=== PATIENT | female | born 1945 | race Two or more races ===

== ENCOUNTER 2019-11-01 17:50 | Inpatient (IN) | payer MEDICARE, BC ==
[~2019-11-01] VITALS: Ht 170.2 cm; Wt 61.2 kg
[2019-11-01] MEDS ORDERED: BISA10SU61 RC (18:14)
[2019-11-01] MEDS ORDERED: PANT40TA2 PO (18:14)
[2019-11-01] MEDS ORDERED: SENN-18 PO (18:14)
[2019-11-01] MEDS ORDERED: POLY17PO4 PO (18:14)
[2019-11-01] MEDS ORDERED: QUET50TA PO (18:14)
[2019-11-01] MEDS ORDERED: ONDA4TAB5 PO (18:14)
[2019-11-01] MEDS ORDERED: LORA-259 PO (18:14)
[2019-11-01] MEDS ORDERED: ACET-2154 PO (18:14)
[2019-11-01] MEDS ORDERED: DOCU-141 PO (18:14)
[2019-11-01] MEDS ORDERED: MAG HYDROX/AL HYDROX/SIMETH 30 ML LIQUID UDC PO PRN (20:00)
[2019-11-01] MEDS ORDERED: BLOOD SUGAR DIAGNOSTIC 1 EACH STRIP VI ONE (20:00)
[2019-11-01] MEDS ORDERED: MAGNESIUM HYDROXIDE 30 ML LIQUID UDC PO PRN (20:00)
[2019-11-01 20:30] VITALS: BP 161/83
[2019-11-01] MEDS: TEMAZEPAM 7.5 MG CAPSULE PO PRN (20:42)
[2019-11-01] MEDS ORDERED: OLANZAPINE 10 MG VIAL IM ONE (21:00)
[2019-11-02 07:30] VITALS: BP 134/77
[2019-11-02 08:15] LABS: BASOPHILS % (AUTO) 0.6 % (0.0-2.0); EOSINOPHILS # (AUTO) 0.1 K/uL (0.0-0.7); EOSINOPHILS % (AUTO) 2.3 % (0.0-7.0); HEMATOCRIT 41.7 % (31.2-41.9); HEMOGLOBIN 13.7 g/dL (10.9-14.3); LYMPHOCYTES # (AUTO) 1.9 K/uL (20.0-40.0); LYMPHOCYTES % (AUTO) 32.5 % (20.5-51.5); MEAN CORPUSCULAR HEMOGLOBIN 31.7 uug (24.7-32.8); MEAN CORPUSCULAR HGB CONC 33 g/dL (32.3-35.6); MEAN CORPUSCULAR VOLUME 96.7 fL (75.5-95.3); MONOCYTES # (AUTO) 0.5 K/uL (2.0-10.0); MONOCYTES % (AUTO) 8.7 % (0.0-11.0); NEUTROPHILS # (AUTO) 3.3 K/uL (1.8-8.9); NEUTROPHILS % (AUTO) 55.9 % (38.5-71.5); PLATELET COUNT (AUTO) 258 K/uL (179-408); RED BLOOD CELL COUNT(AUTO) 4.31 MIL/uL (3.63-4.92); WHITE BLOOD COUNT (AUTO) 5.9 K/uL (3.8-11.8)
[2019-11-02] MEDS: LORAZEPAM 0.5 MG TABLET PO PRN ×2 (08:15→12:49)
[2019-11-02] MEDS ORDERED: OLANZAPINE 10 MG VIAL IM ONE (08:30)
[2019-11-02 08:32] LABS: CREATININE 0.8 mg/dL (0.6-1.3); POTASSIUM 4.1 mmol/L (3.5-5.1)
[2019-11-02 08:54] LABS: BILIRUBIN,TOTAL 0.3 mg/dL (0.1-1.0); PHOSPHOROUS 4.1 mg/dL (2.5-4.9)
[2019-11-02 08:55] LABS: BILIRUBIN,DIRECT 0.1 mg/dL (0.0-0.2); MAGNESIUM 2.1 mg/dL (1.8-2.4); TOTAL PROTEIN, SERUM 7.5 g/dL (6.4-8.2)
[2019-11-02 09:46] LABS: THYROID STIMULATING HORMONE 6.031 mIU/mL (0.358-3.740)
[2019-11-02] MEDS: ACETAMINOPHEN 325 MG TABLET PO PRN (12:50)
[2019-11-02 16:00] VITALS: BP 136/66
[2019-11-02] MEDS: DIVALPROEX SPRINKLE 125 MG CAP.SPRINK PO SCH (16:56)
[2019-11-02] MEDS: CEphaleXIN 500 MG CAPSULE PO SCH ×2 (16:56→20:35)
[2019-11-02] MEDS: OLANZAPINE 5 MG TABLET PO SCH ×2 (16:57→20:35)
[2019-11-02 20:00] VITALS: BP 118/60
[2019-11-02] MEDS: ATORVASTATIN 20 MG TABLET PO SCH (20:35)
[2019-11-03] MEDS: LORAZEPAM 0.5 MG TABLET PO PRN ×4 (02:39→17:59)
[2019-11-03] MEDS: ACETAMINOPHEN 325 MG TABLET PO PRN ×3 (03:35→20:37)
[2019-11-03 07:30] VITALS: BP 168/85
[2019-11-03] MEDS: CEphaleXIN 500 MG CAPSULE PO SCH (08:13)
[2019-11-03] MEDS: DIVALPROEX SPRINKLE 125 MG CAP.SPRINK PO SCH ×3 (08:13→16:37)
[2019-11-03] MEDS: OLANZAPINE 5 MG TABLET PO SCH ×4 (08:13→20:04)
[2019-11-03 11:57] LABS: *BILIRUBIN,URIN NEGATIVE (NEGATIVE); *BLOOD, URINE NEGATIVE (NEGATIVE); *CLARITY,URINE CLEAR (CLEAR); *COLOR,URINE LIGHT YELLOW (YELLOW); *KETONES,URINE NEGATIVE (NEGATIVE); *UROBILINOGEN,URINE 0.2 E.U./dl (NORMAL); LEUKOCYTE ESTERASE ,URINE NEGATIVE (NEGATIVE); NITRITE, URINE NEGATIVE (NEGATIVE); UGLUCOSE NEGATIVE (NEGATIVE)
[2019-11-03] MEDS ORDERED: OLANZAPINE 5 MG TABLET PO SCH (13:00)
[2019-11-03 15:12] VITALS: BP 154/78
[2019-11-03] MEDS: ATORVASTATIN 20 MG TABLET PO SCH (20:04)
[2019-11-03 20:36] VITALS: BP 143/82
[2019-11-04] MEDS: LEVOTHYROXINE SODIUM 25 MCG TABLET PO SCH (06:06)
[2019-11-04 07:30] VITALS: BP_SYST 128; BP_SYST 145; BP_DIAS 77; BP_DIAS 91
[2019-11-04] MEDS: LORAZEPAM 0.5 MG TABLET PO PRN (08:12)
[2019-11-04] MEDS: OLANZAPINE 5 MG TABLET PO SCH ×4 (08:27→20:09)
[2019-11-04] MEDS: DIVALPROEX SPRINKLE 125 MG CAP.SPRINK PO SCH ×3 (08:28→16:26)
[2019-11-04 15:28] VITALS: BP 114/61
[2019-11-04 20:07] VITALS: BP 128/73
[2019-11-04] MEDS: ATORVASTATIN 20 MG TABLET PO SCH (20:09)
[2019-11-05] MEDS: LORAZEPAM 0.5 MG TABLET PO PRN ×4 (03:38→16:40)
[2019-11-05] MEDS: LEVOTHYROXINE SODIUM 25 MCG TABLET PO SCH (06:25)
[2019-11-05 08:00] VITALS: BP 202/97
[2019-11-05] MEDS: ACETAMINOPHEN 325 MG TABLET PO PRN ×2 (08:03→14:22)
[2019-11-05] MEDS: OLANZAPINE 5 MG TABLET PO SCH ×4 (08:03→21:39)
[2019-11-05] MEDS: DIVALPROEX SPRINKLE 125 MG CAP.SPRINK PO SCH ×3 (08:03→16:40)
[2019-11-05 10:00] VITALS: BP 149/70
[2019-11-05 15:00] VITALS: BP 157/75
[2019-11-05] MEDS: ATORVASTATIN 20 MG TABLET PO SCH (21:38)
[2019-11-05 21:56] VITALS: BP 112/55
[2019-11-06] MEDS: LORAZEPAM 0.5 MG TABLET PO PRN ×2 (04:38→10:27)
[2019-11-06] MEDS: LEVOTHYROXINE SODIUM 25 MCG TABLET PO SCH (06:03)
[2019-11-06 07:30] VITALS: BP 124/82
[2019-11-06] MEDS: OLANZAPINE 5 MG TABLET PO SCH ×4 (08:15→21:50)
[2019-11-06] MEDS: DIVALPROEX SPRINKLE 125 MG CAP.SPRINK PO SCH (08:15)
[2019-11-06] MEDS: ACETAMINOPHEN 325 MG TABLET PO PRN (08:15)
[2019-11-06] MEDS ORDERED: DIVALPROEX SPRINKLE 125 MG CAP.SPRINK PO SCH (13:00)
[2019-11-06] MEDS: DIVALPROEX 250 MG TABLET.DR PO SCH (13:20)
[2019-11-06 16:03] VITALS: BP 108/58
[2019-11-06] MEDS ORDERED: DIVALPROEX 500 MG TABLET.DR PO SCH (17:00)
[2019-11-06 20:20] VITALS: BP 118/63
[2019-11-06] MEDS: ATORVASTATIN 20 MG TABLET PO SCH (21:50)
[2019-11-07] MEDS: LORAZEPAM 0.5 MG TABLET PO PRN ×2 (02:16→11:05)
[2019-11-07] MEDS: ACETAMINOPHEN 325 MG TABLET PO PRN (04:21)
[2019-11-07] MEDS: LEVOTHYROXINE SODIUM 25 MCG TABLET PO SCH (06:07)
[2019-11-07 07:30] VITALS: BP 134/85
[2019-11-07 07:40] LABS: BASOPHILS % (AUTO) 0.4 % (0.0-2.0); EOSINOPHILS # (AUTO) 0.1 K/uL (0.0-0.7); EOSINOPHILS % (AUTO) 1.6 % (0.0-7.0); HEMATOCRIT 41.9 % (31.2-41.9); HEMOGLOBIN 13.9 g/dL (10.9-14.3); LYMPHOCYTES # (AUTO) 1.7 K/uL (20.0-40.0); LYMPHOCYTES % (AUTO) 32.1 % (20.5-51.5); MEAN CORPUSCULAR HEMOGLOBIN 31.5 uug (24.7-32.8); MEAN CORPUSCULAR HGB CONC 33 g/dL (32.3-35.6); MONOCYTES # (AUTO) 0.3 K/uL (2.0-10.0); MONOCYTES % (AUTO) 6.1 % (0.0-11.0); NEUTROPHILS # (AUTO) 3.2 K/uL (1.8-8.9); NEUTROPHILS % (AUTO) 59.8 % (38.5-71.5); PLATELET COUNT (AUTO) 279 K/uL (179-408); RED BLOOD CELL COUNT(AUTO) 4.41 MIL/uL (3.63-4.92); WHITE BLOOD COUNT (AUTO) 5.4 K/uL (3.8-11.8)
[2019-11-07 07:57] LABS: BILIRUBIN,TOTAL 0.5 mg/dL (0.2-1.0); CREATININE 0.7 mg/dL (0.6-1.3); POTASSIUM 4.3 mmol/L (3.5-5.1); TOTAL PROTEIN, SERUM 7.7 g/dL (6.4-8.2)
[2019-11-07] MEDS: DIVALPROEX 250 MG TABLET.DR PO SCH ×3 (08:17→17:00)
[2019-11-07] MEDS: OLANZAPINE 5 MG TABLET PO SCH ×4 (08:17→20:59)
[2019-11-07 16:00] VITALS: BP 124/81
[2019-11-07 20:00] VITALS: BP 144/99
[2019-11-07] MEDS: ATORVASTATIN 20 MG TABLET PO SCH (20:59)
[2019-11-08] MEDS: LORAZEPAM 0.5 MG TABLET PO PRN ×2 (04:43→08:56)
[2019-11-08] MEDS: LEVOTHYROXINE SODIUM 25 MCG TABLET PO SCH (06:42)
[2019-11-08 07:30] VITALS: BP 146/86
[2019-11-08] MEDS: DIVALPROEX 250 MG TABLET.DR PO SCH ×3 (07:56→17:07)
[2019-11-08] MEDS: OLANZAPINE 5 MG TABLET PO SCH ×4 (07:56→20:12)
[2019-11-08] MEDS: ACETAMINOPHEN 325 MG TABLET PO PRN (08:29)
[2019-11-08 17:00] VITALS: BP 109/65
[2019-11-08 20:00] VITALS: BP 110/76
[2019-11-08] MEDS: ATORVASTATIN 20 MG TABLET PO SCH (20:12)
[2019-11-08] MEDS: TEMAZEPAM 7.5 MG CAPSULE PO PRN (22:30)
[2019-11-09] MEDS: LEVOTHYROXINE SODIUM 25 MCG TABLET PO SCH (06:03)
[2019-11-09] MEDS: LORAZEPAM 0.5 MG TABLET PO PRN ×3 (06:21→16:26)
[2019-11-09 07:30] VITALS: BP 142/87
[2019-11-09 07:41] LABS: BASOPHILS % (AUTO) 0.5 % (0.0-2.0); EOSINOPHILS # (AUTO) 0.1 K/uL (0.0-0.7); EOSINOPHILS % (AUTO) 1.6 % (0.0-7.0); HEMATOCRIT 41.4 % (31.2-41.9); HEMOGLOBIN 13.9 g/dL (10.9-14.3); LYMPHOCYTES # (AUTO) 1.7 K/uL (20.0-40.0); LYMPHOCYTES % (AUTO) 30.5 % (20.5-51.5); MEAN CORPUSCULAR HEMOGLOBIN 31.8 uug (24.7-32.8); MEAN CORPUSCULAR HGB CONC 34 g/dL (32.3-35.6); MEAN CORPUSCULAR VOLUME 94.8 fL (75.5-95.3); MONOCYTES # (AUTO) 0.4 K/uL (2.0-10.0); MONOCYTES % (AUTO) 6.8 % (0.0-11.0); NEUTROPHILS # (AUTO) 3.4 K/uL (1.8-8.9); NEUTROPHILS % (AUTO) 60.6 % (38.5-71.5); PLATELET COUNT (AUTO) 260 K/uL (179-408); RED BLOOD CELL COUNT(AUTO) 4.37 MIL/uL (3.63-4.92); WHITE BLOOD COUNT (AUTO) 5.6 K/uL (3.8-11.8)
[2019-11-09 07:49] LABS: ALANINE AMINOTRANSFERASE 24 U/L (14-59); ALKALINE PHOSPHATASE 82 U/L (50-136); ASPARTATE AMINOTRANSFERASE 22 U/L (15-37); BILIRUBIN,TOTAL 0.5 mg/dL (0.2-1.0); CARBON DIOXIDE 27 mmol/L (21-32); CHLORIDE 106 mmol/L (98-107); CREATININE 0.7 mg/dL (0.6-1.3); GLUCOSE 90 mg/dL (74-106); POTASSIUM 4.1 mmol/L (3.5-5.1); TOTAL PROTEIN, SERUM 7.6 g/dL (6.4-8.2); UREA NITROGEN, BLOOD 19 mg/dL (7-18); VALPROIC ACID 84 ug/mL (50-100)
[2019-11-09] MEDS: DIVALPROEX 250 MG TABLET.DR PO SCH ×3 (08:18→16:26)
[2019-11-09] MEDS: OLANZAPINE 5 MG TABLET PO SCH ×4 (08:18→21:11)
[2019-11-09] MEDS: ACETAMINOPHEN 325 MG TABLET PO PRN ×2 (08:18→16:26)
[2019-11-09 17:32] VITALS: BP 113/71
[2019-11-09 20:20] VITALS: BP 136/70
[2019-11-09] MEDS: ATORVASTATIN 20 MG TABLET PO SCH (21:11)
[2019-11-10] MEDS: LORAZEPAM 0.5 MG TABLET PO PRN ×3 (04:48→16:57)
[2019-11-10] MEDS: ACETAMINOPHEN 325 MG TABLET PO PRN ×3 (04:49→16:57)
[2019-11-10] MEDS: LEVOTHYROXINE SODIUM 25 MCG TABLET PO SCH (06:25)
[2019-11-10 07:30] VITALS: BP 149/87
[2019-11-10] MEDS: OLANZAPINE 5 MG TABLET PO SCH ×4 (09:01→20:15)
[2019-11-10] MEDS: DIVALPROEX 250 MG TABLET.DR PO SCH ×3 (09:01→16:57)
[2019-11-10 16:00] VITALS: BP 137/80
[2019-11-10] MEDS: ATORVASTATIN 20 MG TABLET PO SCH (20:15)
[2019-11-10] MEDS: TEMAZEPAM 7.5 MG CAPSULE PO PRN (20:16)
[2019-11-10 20:31] VITALS: BP 134/78
[2019-11-11] MEDS: LORAZEPAM 0.5 MG TABLET PO PRN ×3 (02:28→11:21)
[2019-11-11] MEDS: ACETAMINOPHEN 325 MG TABLET PO PRN ×2 (02:28→11:19)
[2019-11-11] MEDS: LEVOTHYROXINE SODIUM 25 MCG TABLET PO SCH (06:22)
[2019-11-11 07:30] VITALS: BP 160/75
[2019-11-11] MEDS: OLANZAPINE 5 MG TABLET PO SCH ×4 (08:17→20:06)
[2019-11-11] MEDS: DIVALPROEX 250 MG TABLET.DR PO SCH ×3 (08:17→16:19)
[2019-11-11 15:37] VITALS: BP 146/86
[2019-11-11] MEDS: LORAZEPAM 0.5 MG TABLET PO SCH (16:20)
[2019-11-11] MEDS: ATORVASTATIN 20 MG TABLET PO SCH (20:06)
[2019-11-11 20:27] VITALS: BP 135/69
[2019-11-11] MEDS ORDERED: TEMAZEPAM 7.5 MG CAPSULE PO PRN (21:00)
[2019-11-12] MEDS: LORAZEPAM 0.5 MG TABLET PO PRN ×2 (03:08→12:09)
[2019-11-12] MEDS: LEVOTHYROXINE SODIUM 25 MCG TABLET PO SCH (06:10)
[2019-11-12 07:46] VITALS: BP 157/85
[2019-11-12] MEDS: LORAZEPAM 0.5 MG TABLET PO SCH ×2 (08:15→15:43)
[2019-11-12] MEDS: OLANZAPINE 5 MG TABLET PO SCH ×3 (08:15→15:43)
[2019-11-12] MEDS: ACETAMINOPHEN 325 MG TABLET PO PRN (08:15)
[2019-11-12] MEDS: DIVALPROEX 250 MG TABLET.DR PO SCH ×3 (08:15→15:43)
[2019-11-12] MEDS ORDERED: AMLODIPINE 2.5 MG TABLET PO SCH (09:00)
[2019-11-12 16:00] VITALS: BP 109/77
== END 2019-11-12 16:45 | DRG 885 ==
LOC: ER 17:53 → GPS 19:53
PROVIDERS: ADMIT Psychiatry & Neurology Psychosomatic Medicine; ATTEND Nurse Practitioner Acute Care
DX: F25.0 Schizoaffective disorder, bipolar type (principal); F01.51 Vascular dementia, unspecified severity, with behavioral disturbance; G93.41 Metabolic encephalopathy; E78.5 Hyperlipidemia, unspecified; E03.9 Hypothyroidism, unspecified; Z79.890 Hormone replacement therapy; Z79.899 Other long term (current) drug therapy
CPT/HCPCS: 36415; 80164; 83735; 84100; 84443; 85025; 87086; A4663; J2358; J3490